=== PATIENT | female | born 1990 | race Caucasian/White ===

== ENCOUNTER 2025-05-01 00:10 | Emergency (ER) | payer SELFPAY | END 2025-05-01 04:14 | disposition home or self-care (01) | LOC: ERS 00:10 | DX: S00.03XA Contusion of scalp, initial encounter (principal); F17.210 Nicotine dependence, cigarettes, uncomplicated; W18.30XA Fall on same level, unspecified, initial encounter | CPT/HCPCS: 70450; 72125; 96372; J2270 ==